=== PATIENT | male | born 1945 | race Caucasian/White ===

== ENCOUNTER 2022-12-26 09:35 | Outpatient (REF) | payer MEDICARE, SELFPAY | END 2022-12-26 09:36 | disposition home or self-care (01) | LOC: HO.LAB 09:35 | PROVIDERS: PCP Internal Medicine; Visit Provider Hospitalist | DX: J45.50 Severe persistent asthma, uncomplicated (principal); J42 Unspecified chronic bronchitis; D72.10 Eosinophilia, unspecified | CPT/HCPCS: 36415; 82785; 86003; 99202 ==

== ENCOUNTER 2023-01-15 07:34 | Outpatient (REF) | payer MEDICARE, SELFPAY ==
--- NOTE | 2023-01-15 17:13 | PFT_ITS ---
Forced vital capacity 117%, FEV1 118%, FEV1/FVC ratio is 72. [id number], 123% and MVV 95%. Post bronchodilator therapy, there is no significant change. Total lung capacity 108% and residual volume 102%. Diffusion capacity 91%. CONCLUSION: Normal pulmonary function test and there is no evidence of any obstructive or restrictive pulmonary disorder. MD JERRELL Morrissey/ARSLAN / [id number]
== END 2023-01-15 07:35 | disposition home or self-care (01) ==
LOC: HO.RESP 07:34
PROVIDERS: PCP Internal Medicine; Visit Provider Hospitalist
DX: J45.50 Severe persistent asthma, uncomplicated (principal)
CPT/HCPCS: 94060; 94727; 94729

== ENCOUNTER → 2023-01-30 09:36 | Outpatient (BNVA) | payer MEDICARE, SELFPAY | PROVIDERS: PCP Internal Medicine; Visit Provider Hospitalist | DX: J45.50 Severe persistent asthma, uncomplicated (principal); J42 Unspecified chronic bronchitis; D72.10 Eosinophilia, unspecified | CPT/HCPCS: Q3014 ==

== ENCOUNTER → 2023-04-05 14:09 | Outpatient (BNVA) | payer MEDICARE, SELFPAY | PROVIDERS: PCP Internal Medicine; Visit Provider Hospitalist | DX: J45.50 Severe persistent asthma, uncomplicated (principal); J42 Unspecified chronic bronchitis; D72.10 Eosinophilia, unspecified; Z79.899 Other long term (current) drug therapy | CPT/HCPCS: 99212 ==

== ENCOUNTER 2023-06-06 09:00 | Outpatient (AMB) | payer MEDICARE, SELFPAY ==
--- NOTE | 2023-06-06 09:17 | A.OFFVIS_ITS ---
Intake Vital Signs 06/06/23 09:18 Height 5 ft 9 in Weight 197 lb BMI 29.1 BP 112/78 Blood Pressure Location Lt brachial Position Standing Pulse 105 H Pulse Source Pulse Oximeter Pulse Oximetry (%) 95 Intake Visit Reasons: COPD follow-up Intake Note: pt is here for follow up and states he is feeling good. Head Trimmer Required: No Allergies No Known Allergies Allergy (Verified 06/06/23 09:22) HPI HPI Comments History of Present Illness Details The patient is a 77-year-old gentleman with lifelong asthma. He had been otherwise doing well until the last about 3 years. He has had more bouts of difficulty breathing. He has been on Symbicort 160 or 4.5 which initially was helpful but now appears to be not enough. He is having to use his rescue inhaler multiple times. Says response very good to prednisone. At times he will take the prednisone every 3 days to try to keep him stable and minimize exacerbations. Although the therapy was working he understands that prednisone does have significant adverse effects especially taking it regularly. The patient was last evaluated at [facility] about 4-6 weeks ago for worsening shortness of breath and chest tightness. There he had a chest x-ray demonstrating hyperinflation of the lungs. His blood work was also evaluated. He did not have any recent blood work done but previous blood work demonstrates significant eosinophilia between 800 to 1100 absolute count which is significantly high. 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 Patient also understands with all the above stations that he has had throughout the years he is having less response to the bronchodilators and now relying more on prednisone to dissolve the eosinophilic issue. Will go ahead and request additional blood work. Will also try to optimize his respiratory therapy. However, in view of his significant eosinophilic asthma and is frequent exacerbations any for prednisone he will be a great candidate for biologic therapy with IL5 inhibitor. 01/30/2023 the patient has a telehealth visit. The patient overall has been doing better on the Trelegy inhaler. Although he is concerned about the cost. He has not tried to pick it up as of yet. He had been on Symbicort before that. Appear to be not very effective for him he ended did undergo blood work is IgE level was elevated 199 and also had some minimal allergies noted on the RAST panel. His respiratory status appears to be better although his nasal congestion is worse. Complains of postnasal drip nasal congestion moderate severity. He has been using the Neti bottle to rinse his nose. He ate knows to use distilled water. Therefore, will go ahead and add allergy medicines to his regimen and also nasal cortical steroids. The patient may have a component of a subacute or chronic sinusitis from the ongoing obstruction so therefore will go ahead and start him on doxycycline for a course of 10-14 days. Also, if the Trelegy inhaler is too expensive will try to find alternative that will be most reasonable for him. The 04/05/2023 the patient is here for pulmonary follow-up visit. He continues to struggle with his breathing. Still has a cough moderate severity. Does respond well to his bronchodilator. Patient has significant allergies. He has tried multiple inhalers the only 1 that really work well was Trelegy but it was too expensive. Symbicort seems to be partially helpful. Although he needs to make sure to use it. He feels like the rescue inhaler is most effective 1. Clear the a combination work better than 1 by itself. In addition to this is wondering about prednisone. Does have a lot of wheezing on examination so therefore is reasonable for him to go on a prednisone course. But I would advise him to stay on chronic prednisone in view of all the adverse effects. The patient does have significant wheezing. He will benefit from also a nebulizer to provide better bronchodilation. 06/06/2023 the patient is here for a pulmonary follow-up visit. Overall the patient is doing very well. He has been using the Symbicort inhaler. He also will start using the singular that he got recently. She does like he is doing a lot better. He did get prescribed prednisone but he has not had to use it often. Possibly just about 8 tablets. He is really trying not to use it at all. Currently his asthma seems to be in good control and is not requiring any additional medication. He did have allergy testing. Seems like he does have a slight elevation the IgE but otherwise minimal. Will plan to have him come back in the springtime and repeat a chest x-ray at that time. Otherwise patient is doing well [facility] Medical History (Updated 12/26/22 @ 21:51 by Castillo Wallace MD) Allergic eosinophilia Asthma Chronic bronchitis Social History (Reviewed 06/06/23 @ 09:24 by Kenia Singleton COUNT INCLUDES THE [facility]) Patient Tobacco Use Status: Never used Tobacco Review of Systems Const Denies fever(s) Eyes Denies change in vision ENT Denies change in voice, Reports nasal congestion, Reports nasal discharge and Reports post nasal drip Card Denies chest pain Resp Denies chest congestion, Reports cough and Denies wheezing GI Reports no additional complaints Musc Reports no additional complaints Skin/Breast Denies rash Neuro Reports no additional complaints Endo Denies flushing Jay/Lymph Denies easy bruising and Denies lymphadenopathy Aller/Immun Denies wheezing Physical Exam Vital Signs: Last Vital Signs Pulse 105 H 06/06/23 09:18 BP 112/78 06/06/23 09:18 Pulse Ox 95 06/06/23 09:18 BMI result Body Mass Index 29.1 Const General: comfortable HEENT Head: Yes normocephalic Eyes General: appearance normal, both eyes and all related structures Neck Neck: Yes supple Chest Chest palpation & inspection: normal inspection of the chest Resp Effort & Inspection: normal respiratory effort Auscultation: no rhonchi, no wheezes and diminished lung sounds Cardio Rate: regular rate Rhythm: regular rhythm Heart sounds: S1 normal heart sound present and S2 normal heart sound present GI Auscultation: normal bowel sounds Skin General skin exam: no rashes or lesions noted Extrem General: Yes no clubbing, cyanosis or edema Assessment & Plan Assessment & Plan (1) Asthma: Code(s): J45.909 - Unspecified asthma, uncomplicated Qualifiers: Asthma complication type: uncomplicated Asthma persistence: persistent Asthma severity: severe Qualified Code(s): J45.50 - Severe persistent asthma, uncomplicated (2) Chronic bronchitis: Code(s): J42 - Unspecified chronic bronchitis (3) 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
[2023-06-06 09:18] VITALS: BP 112/78; PULSE 105; O2SAT 95; BMI 29.1
== END 2023-06-06 10:05 | disposition home or self-care (01) ==
PROVIDERS: PCP Internal Medicine; Visit Provider Hospitalist
DX: J45.50 Severe persistent asthma, uncomplicated (principal); J42 Unspecified chronic bronchitis; D72.10 Eosinophilia, unspecified
CPT/HCPCS: 99214

== ENCOUNTER → 2023-06-06 09:00 | Outpatient (BNVA) | payer MEDICARE, SELFPAY | PROVIDERS: Visit Provider Hospitalist | DX: J45.50 Severe persistent asthma, uncomplicated (principal); J42 Unspecified chronic bronchitis; D72.10 Eosinophilia, unspecified | CPT/HCPCS: 99212 ==

== ENCOUNTER 2023-10-04 13:36 | Outpatient (AMB) | payer MEDICARE, SELFPAY ==
--- NOTE | 2023-10-04 13:46 | MHC.OFFVIS ---
Intake Vital Signs 10/04/23 13:47 Height 5 ft 9 in Weight 195 lb 1.745 oz BMI 28.8 BP 128/84 Blood Pressure Location Rt brachial Position Sitting Pulse 95 Pulse Source Doppler Pulse Oximetry (%) 96 Oxygen Delivery Method Room Air Intake Visit Reasons: productive cough Allergies No Known Allergies Allergy (Verified 10/04/23 13:48) HPI HPI Comments History of Present Illness Details The patient is a 78-year-old gentleman with lifelong asthma. He had been otherwise doing well until the last about 3 years. He has had more bouts of difficulty breathing. He has been on Symbicort 160 or 4.5 which initially was helpful but now appears to be not enough. He is having to use his rescue inhaler multiple times. Says response very good to prednisone. At times he will take the prednisone every 3 days to try to keep him stable and minimize exacerbations. Although the therapy was working he understands that prednisone does have significant adverse effects especially taking it regularly. The patient was last evaluated at [facility] about 4-6 weeks ago for worsening shortness of breath and chest tightness. There he had a chest x-ray demonstrating hyperinflation of the lungs. His blood work was also evaluated. He did not have any recent blood work done but previous blood work demonstrates significant eosinophilia between 800 to 1100 absolute count which is significantly high. 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 Patient also understands with all the above stations that he has had throughout the years he is having less response to the bronchodilators and now relying more on prednisone to dissolve the eosinophilic issue. Will go ahead and request additional blood work. Will also try to optimize his respiratory therapy. However, in view of his significant eosinophilic asthma and is frequent exacerbations any for prednisone he will be a great candidate for biologic therapy with IL5 inhibitor. 01/30/2023 the patient has a telehealth visit. The patient overall has been doing better on the Trelegy inhaler. Although he is concerned about the cost. He has not tried to pick it up as of yet. He had been on Symbicort before that. Appear to be not very effective for him he ended did undergo blood work is IgE level was elevated 199 and also had some minimal allergies noted on the RAST panel. His respiratory status appears to be better although his nasal congestion is worse. Complains of postnasal drip nasal congestion moderate severity. He has been using the Neti bottle to rinse his nose. He ate knows to use distilled water. Therefore, will go ahead and add allergy medicines to his regimen and also nasal cortical steroids. The patient may have a component of a subacute or chronic sinusitis from the ongoing obstruction so therefore will go ahead and start him on doxycycline for a course of 10-14 days. Also, if the Trelegy inhaler is too expensive will try to find alternative that will be most reasonable for him. The 04/05/2023 the patient is here for pulmonary follow-up visit. He continues to struggle with his breathing. Still has a cough moderate severity. Does respond well to his bronchodilator. Patient has significant allergies. He has tried multiple inhalers the only 1 that really work well was Trelegy but it was too expensive. Symbicort seems to be partially helpful. Although he needs to make sure to use it. He feels like the rescue inhaler is most effective 1. Clear the a combination work better than 1 by itself. In addition to this is wondering about prednisone. Does have a lot of wheezing on examination so therefore is reasonable for him to go on a prednisone course. But I would advise him to stay on chronic prednisone in view of all the adverse effects. The patient does have significant wheezing. He will benefit from also a nebulizer to provide better bronchodilation. 06/06/2023 the patient is here for a pulmonary follow-up visit. Overall the patient is doing very well. He has been using the Symbicort inhaler. He also will start using the singular that he got recently. She does like he is doing a lot better. He did get prescribed prednisone but he has not had to use it often. Possibly just about 8 tablets. He is really trying not to use it at all. Currently his asthma seems to be in good control and is not requiring any additional medication. He did have allergy testing. Seems like he does have a slight elevation the IgE but otherwise minimal. Will plan to have him come back in the springtime and repeat a chest x-ray at that time. Otherwise patient is doing well. 10/04/2023 the patient is here for a pulmonary follow-up visit. The patient overall has been doing well. He continues with Symbicort inhaler. The patient had been given a prescription of prednisone back in May. He is had to use it a few times. The patient does only use the minimal amount of prednisone for only a few days. Again we talked about his significant eosinophilia. His absolute eosinophils count is up to 800 the last time they were checked back in July 2023. Explained to him that with eosinophilic asthma it can be easily treated with biologic therapy. Therefore, he will not require as much prednisone that has significant adverse effects. I did give him some information about Mariahra he is going to read up on it and decide. In the meantime the patient is doing better this time. Denies any wheezing or chest tightness. He is staying active in 20 to exercise regularly. Will follow-up in 6 months. If the patient decides to try the biologic therapy prior to that he is to call the office so we can arrange for it. [facility] Medical History (Updated 10/04/23 @ 13:50 by Castillo Wallace MD) Allergic eosinophilia Chronic bronchitis Asthma Social History Patient Tobacco Use Status: Never used Tobacco Review of Systems Const Denies fever(s) Eyes Denies change in vision ENT Denies change in voice, Reports nasal congestion, Reports nasal discharge and Reports post nasal drip Card Denies chest pain Resp Denies chest congestion, Reports cough and Reports wheezing GI Reports no additional complaints Musc Reports no additional complaints Skin/Breast Denies rash Neuro Reports no additional complaints Endo Denies flushing Jay/Lymph Denies easy bruising and Denies lymphadenopathy Aller/Immun Reports wheezing Physical Exam Vital Signs: Last Vital Signs Pulse 95 10/04/23 13:47 BP 128/84 10/04/23 13:47 Pulse Ox 96 10/04/23 13:47 Oxygen Delivery Method Room Air 10/04/23 13:47 BMI result Body Mass Index 28.8 Const General: comfortable HEENT Head: Yes normocephalic Eyes General: appearance normal, both eyes and all related structures Neck Neck: Yes supple Chest Chest palpation & inspection: normal inspection of the chest Resp Effort & Inspection: normal respiratory effort Auscultation: no rhonchi, no wheezes and diminished lung sounds Cardio Rate: regular rate Rhythm: regular rhythm Heart sounds: S1 normal heart sound present and S2 normal heart sound present GI Auscultation: normal bowel sounds Skin General skin exam: no rashes or lesions noted Extrem General: Yes no clubbing, cyanosis or edema Assessment & Plan Assessment & Plan (1) Asthma: Code(s): J45.909 - Unspecified asthma, uncomplicated Qualifiers: Asthma complication type: uncomplicated Asthma persistence: persistent Asthma severity: severe Qualified Code(s): J45.50 - Severe persistent asthma, uncomplicated (2) Chronic bronchitis: Code(s): J42 - Unspecified chronic bronchitis Qualifiers: Chronic bronchitis type: mucopurulent Qualified Code(s): J41.1 - Mucopurulent chronic bronchitis (3) 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 F/U 6-8 months Medications: New prednisone PO daily; Take 6 tabs daily x 3 days, then 5 tabs x 3 days, then 4 tabs x 3 days, then 3 tabs x 3 days, then 2 tabs daily x 3 days, then 1 tab x 3 days to complete. 18 days 63 tabs 0RF Coding Level of Care Code Est Pt Level 4 (67056) Diagnoses Severe persistent asthma without complication J45.50 Asthma complication type: uncomplicated Asthma persistence: persistent Asthma severity: severe Mucopurulent chronic bronchitis J41.1 Chronic bronchitis type: mucopurulent Allergic eosinophilia D72.10 Time Spent (min) 16
[2023-10-04 13:47] VITALS: BP 128/84; PULSE 95; O2SAT 96; BMI 28.8
== END 2023-10-04 14:04 | disposition home or self-care (01) ==
PROVIDERS: PCP Internal Medicine; Visit Provider Hospitalist
DX: J45.50 Severe persistent asthma, uncomplicated (principal); J41.1 Mucopurulent chronic bronchitis; D72.10 Eosinophilia, unspecified
CPT/HCPCS: 99214

== ENCOUNTER → 2023-10-04 13:36 | Outpatient (BNVA) | payer MEDICARE, SELFPAY | PROVIDERS: PCP Internal Medicine; Visit Provider Hospitalist | DX: J45.50 Severe persistent asthma, uncomplicated (principal); J41.1 Mucopurulent chronic bronchitis; D72.10 Eosinophilia, unspecified | CPT/HCPCS: 99212 ==

== ENCOUNTER 2024-04-09 09:05 | Outpatient (AMB) | payer MEDICARE, SELFPAY ==
--- NOTE | 2024-04-09 09:09 | A.OFFVIS_ITS ---
Vital Signs 04/09/24 09:10 Height 5 ft 9 in Weight 194 lb BMI 28.6 BP 134/78 Blood Pressure Location Lt brachial Position Sitting Pulse 89 Pulse Source Pulse Oximeter Pulse Oximetry (%) 97 Oxygen Delivery Method Room Air Intake Visit Reasons: productive cough [employer] Required: No Allergies No Known Allergies Allergy (Verified 04/09/24 09:12) HPI Comments Details: The patient is a 78-year-old gentleman with lifelong asthma. He had been otherwise doing well until the last about 3 years. He has had more bouts of difficulty breathing. He has been on Symbicort 160 or 4.5 which initially was helpful but now appears to be not enough. He is having to use his rescue inhaler multiple times. Says response very good to prednisone. At times he will take the prednisone every 3 days to try to keep him stable and minimize exacerbations. Although the therapy was working he understands that prednisone does have significant adverse effects especially taking it regularly. The patient was last evaluated at [facility] about 4-6 weeks ago for worsening shortness of breath and chest tightness. There he had a chest x-ray demonstrating hyperinflation of the lungs. His blood work was also evaluated. He did not have any recent blood work done but previous blood work demonstrates significant eosinophilia between 800 to 1100 absolute count which is significantly high. 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 Patient also understands with all the above stations that he has had throughout the years he is having less response to the bronchodilators and now relying more on prednisone to dissolve the eosinophilic issue. Will go ahead and request additional blood work. Will also try to optimize his respiratory therapy. However, in view of his significant eosinophilic asthma and is frequent exacerbations any for prednisone he will be a great candidate for biologic therapy with IL5 inhibitor. 10/04/2023 the patient is here for a pulmonary follow-up visit. The patient overall has been doing well. He continues with Symbicort inhaler. The patient had been given a prescription of prednisone back in May. He is had to use it a few times. The patient does only use the minimal amount of prednisone for only a few days. Again we talked about his significant eosinophilia. His absolute eosinophils count is up to 800 the last time they were checked back in July 2023. Explained to him that with eosinophilic asthma it can be easily treated with biologic therapy. Therefore, he will not require as much prednisone that has significant adverse effects. I did give him some information about Fasenra he is going to read up on it and decide. In the meantime the patient is doing better this time. Denies any wheezing or chest tightness. He is staying active in 20 to exercise regularly. Will follow-up in 6 months. If the patient decides to try the biologic therapy prior to that he is to call the office so we can arrange for it. 04/09/2024 the patient is here for a pulmonary follow-up visit. The patient is doing very well. He continues on the Symbicort and also has been using his allergy medicines. He also has a rescue medicine. He has not had to use it frequently. Typically about twice a week. Regards the prednisone he has been doing very well off the prednisone. At times may take does here and there to try to avoid any significant exacerbations. He does have significant eosinophilic asthma. We did talk about other alternatives including biologic therapies that he has not interested at this time. The patient is happy with his current regimen of medications. We did talk about the risks and benefits of prednisone in the adverse effects that can happen with long-term use. The patient is aware and is willing to continue to use the prednisone as needed. He understands though that if his condition worsens and stops responding to the minimal dose prednisone that he takes as needed then we can at that point talk about other potential treatment options. [facility] Medical History (Updated 10/04/23 @ 13:50 by Castillo Wallace MD) Allergic eosinophilia Chronic bronchitis Asthma Social History Patient Tobacco Use Status: Never used Tobacco Review of Systems Const Denies fever(s) Eyes Denies change in vision ENT Denies change in voice, Reports nasal congestion, Reports nasal discharge and Reports post nasal drip Card Denies chest pain Resp Denies chest congestion, Reports cough and Reports wheezing GI Reports no additional complaints Musc Reports no additional complaints Skin/Breast Denies rash Neuro Reports no additional complaints Endo Denies flushing Jay/Lymph Denies easy bruising and Denies lymphadenopathy Aller/Immun Reports wheezing Physical Exam Vital Signs: Last Vital Signs Pulse 89 04/09/24 09:10 BP 134/78 04/09/24 09:10 Pulse Ox 97 04/09/24 09:10 Oxygen Delivery Method Room Air 04/09/24 09:10 BMI result Body Mass Index 28.6 Const General: comfortable HEENT Head: Yes normocephalic Eyes General: appearance normal, both eyes and all related structures Neck Neck: Yes supple Chest Chest palpation & inspection: normal inspection of the chest Resp Effort & Inspection: normal respiratory effort Auscultation: no rhonchi, no wheezes and diminished lung sounds Cardio Rate: regular rate Rhythm: regular rhythm Heart sounds: S1 normal heart sound present and S2 normal heart sound present GI Auscultation: normal bowel sounds Skin General skin exam: no rashes or lesions noted Extrem General: Yes no clubbing, cyanosis or edema Assessment & Plan Assessment & Plan (1) Asthma: Code(s): J45.909 - Unspecified asthma, uncomplicated Category: Medical Qualifiers: Asthma complication type: uncomplicated Asthma persistence: persistent Asthma severity: severe Qualified Code(s): J45.50 - Severe persistent asthma, uncomplicated (2) Chronic bronchitis: Code(s): J42 - Unspecified chronic bronchitis Category: Medical Qualifiers: Chronic bronchitis type: mucopurulent Qualified Code(s): J41.1 - Mucopurulent chronic bronchitis (3) Allergic eosinophilia: Code(s): D72.10 - Eosinophilia, unspecified Category: Medical Plan conrinue Symbicort JOSE as needed nebulizer to use BID continue Singulair continue fluticasone nasal spray Start Prednisone if no better will be a great candidate for IL5 inhibitor to treat his eosinophilic asthma, Provided information re: Fredis. F/U 8 months Medications: Refilled montelukast (Singulair) 10 mg PO BEDTIME 30 tabs 11RF 30 days J45.909 - Unspecified asthma, uncomplicated budesonide-formoterol 160-4.5 mcg/actuation (Symbicort) 2 puffs inhalation Q12H 10.2 grams 11RF albuterol sulfate 90 mcg/actuation 2 puffs inhalation Q4-6H PRN 8.5 grams 11RF shortness of breath or wheezing Coding Level of Care Code Est Pt Level 4 (18212) Diagnoses Severe persistent asthma without complication J45.50 Asthma complication type: uncomplicated Asthma persistence: persistent Asthma severity: severe Mucopurulent chronic bronchitis J41.1 Chronic bronchitis type: mucopurulent Allergic eosinophilia D72.10 Time Spent (min) 16
[2024-04-09 09:10] VITALS: BP 134/78; PULSE 89; O2SAT 97; BMI 28.6
== END 2024-04-09 09:25 | disposition home or self-care (01) ==
PROVIDERS: PCP Internal Medicine; Visit Provider Hospitalist
DX: J45.50 Severe persistent asthma, uncomplicated (principal); J41.1 Mucopurulent chronic bronchitis; D72.10 Eosinophilia, unspecified
CPT/HCPCS: 99214

== ENCOUNTER → 2024-04-09 | Outpatient (BNVA) | payer MEDICARE, SELFPAY | PROVIDERS: PCP Internal Medicine; Visit Provider Hospitalist | DX: J82.83 Eosinophilic asthma (principal); J45.50 Severe persistent asthma, uncomplicated; J42 Unspecified chronic bronchitis | CPT/HCPCS: 99212 ==

== ENCOUNTER 2025-01-15 09:20 | Outpatient (AMB) | payer MEDICARE, SELFPAY ==
[2025-01-15 09:25] VITALS: BP 110/78; PULSE 84; O2SAT 97; BMI 29.0
--- NOTE | 2025-01-15 09:25 | A.OFFVIS_ITS ---
Vital Signs 01/15/25 09:25 Height 5 ft 9 in Weight 196 lb 3.382 oz BMI 29.0 BP 110/78 Blood Pressure Location Rt brachial Position Sitting Pulse 84 Pulse Source Pulse Oximeter Pulse Oximetry (%) 97 Oxygen Delivery Method Room Air Intake Visit Reasons: cough Allergies No Known Allergies Allergy (Verified 01/15/25 09:28) HPI Comments Details: The patient is a 79-year-old gentleman with lifelong asthma. He had been otherwise doing well until the last about 3 years. He has had more bouts of difficulty breathing. He has been on Symbicort 160 or 4.5 which initially was helpful but now appears to be not enough. He is having to use his rescue inhaler multiple times. Says response very good to prednisone. At times he will take the prednisone every 3 days to try to keep him stable and minimize exacerbations. Although the therapy was working he understands that prednisone does have significant adverse effects especially taking it regularly. The patient was last evaluated at [facility] about 4-6 weeks ago for worsening shortness of breath and chest tightness. There he had a chest x-ray demonstrating hyperinflation of the lungs. His blood work was also evaluated. He did not have any recent blood work done but previous blood work demonstrates significant eosinophilia between 800 to 1100 absolute count which is significantly high. 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 Patient also understands with all the above stations that he has had throughout the years he is having less response to the bronchodilators and now relying more on prednisone to dissolve the eosinophilic issue. Will go ahead and request additional blood work. Will also try to optimize his respiratory therapy. However, in view of his significant eosinophilic asthma and is frequent exacerbations any for prednisone he will be a great candidate for biologic therapy with IL5 inhibitor. 10/04/2023 the patient is here for a pulmonary follow-up visit. The patient overall has been doing well. He continues with Symbicort inhaler. The patient had been given a prescription of prednisone back in May. He is had to use it a few times. The patient does only use the minimal amount of prednisone for only a few days. Again we talked about his significant eosinophilia. His absolute eosinophils count is up to 800 the last time they were checked back in July 2023. Explained to him that with eosinophilic asthma it can be easily treated with biologic therapy. Therefore, he will not require as much prednisone that has significant adverse effects. I did give him some information about Mariahra he is going to read up on it and decide. In the meantime the patient is doing better this time. Denies any wheezing or chest tightness. He is staying active in 20 to exercise regularly. Will follow-up in 6 months. If the patient decides to try the biologic therapy prior to that he is to call the office so we can arrange for it. 04/09/2024 the patient is here for a pulmonary follow-up visit. The patient is doing very well. He continues on the Symbicort and also has been using his allergy medicines. He also has a rescue medicine. He has not had to use it frequently. Typically about twice a week. Regards the prednisone he has been doing very well off the prednisone. At times may take does here and there to try to avoid any significant exacerbations. He does have significant eosinophilic asthma. We did talk about other alternatives including biologic therapies that he has not interested at this time. The patient is happy with his current regimen of medications. We did talk about the risks and benefits of prednisone in the adverse effects that can happen with long-term use. The patient is aware and is willing to continue to use the prednisone as needed. He understands though that if his condition worsens and stops responding to the minimal dose prednisone that he takes as needed then we can at that point talk about other potential treatment options. 01/15/2025 the patient is here for a pulmonary follow-up visit. Overall he is doing well from a respiratory status. He continues to complain about a postnasal drip and a constant clearing of the throat and some coughing. Seems to be pretty persistent for him. He does have underlying allergies and significant eosinophilia. He is currently not treating his nose. He is not taking any other allergy medicine except for the Singulair. From the respiratory status is doing well denies any wheezing or chest tightness. He has been able to stay active and doing all the activities of daily living without any limitations. We did review imaging studies. He did have a CT scan of the chest in 2021 which was personally by me demonstrating some evidence of bronchitis but no airspace disease or nodular densities, and also had a CT scan of the abdomen done more recently 10/08/2024 did personally look at the lung windows there appeared to be okay. Will plan to have him come back next year will do an x-ray done. If he has any issues her symptoms prior to that he will call get the x-ray sooner. And for the meantime will start him on Zyrtec and also Tessalon Perles as needed for that constant clearing. [facility] Medical History (Updated 10/04/23 @ 13:50 by Castillo Wallace MD) Allergic eosinophilia Chronic bronchitis Asthma Social History Patient Tobacco Use Status: Never used Tobacco Review of Systems Const Denies fever(s) Eyes Denies change in vision ENT Denies change in voice, Reports nasal congestion, Reports nasal discharge and Reports post nasal drip Card Denies chest pain Resp Denies chest congestion, Reports cough and Reports wheezing GI Reports no additional complaints Musc Reports no additional complaints Skin/Breast Denies rash Neuro Reports no additional complaints Endo Denies flushing Jay/Lymph Denies easy bruising and Denies lymphadenopathy Aller/Immun Reports wheezing Physical Exam Vital Signs: Last Vital Signs Pulse 84 01/15/25 09:25 BP 110/78 01/15/25 09:25 Pulse Ox 97 01/15/25 09:25 Oxygen Delivery Method Room Air 01/15/25 09:25 BMI result Body Mass Index 29.0 Const General: comfortable HEENT Head: Yes normocephalic Eyes General: appearance normal, both eyes and all related structures Neck Neck: Yes supple Chest Chest palpation & inspection: normal inspection of the chest Resp Effort & Inspection: normal respiratory effort Auscultation: clear to auscultation bilaterally, no rhonchi and no wheezes Cardio Rate: regular rate Rhythm: regular rhythm Heart sounds: S1 normal heart sound present and S2 normal heart sound present GI Auscultation: normal bowel sounds Skin General skin exam: no rashes or lesions noted Extrem General: Yes no clubbing, cyanosis or edema Assessment & Plan Assessment & Plan (1) Asthma: Code(s): J45.909 - Unspecified asthma, uncomplicated Category: Medical Qualifiers: Asthma complication type: uncomplicated Asthma persistence: persistent Asthma severity: severe Qualified Code(s): J45.50 - Severe persistent asthma, uncomplicated (2) Chronic bronchitis: Code(s): J42 - Unspecified chronic bronchitis Category: Medical Qualifiers: Chronic bronchitis type: mucopurulent Qualified Code(s): J41.1 - Mucopurulent chronic bronchitis (3) Allergic eosinophilia: Code(s): D72.10 - Eosinophilia, unspecified Category: Medical Plan conrinue Symbicort JOSE as needed nebulizer to use BID continue Singulair continue fluticasone nasal spray zyrtec tessalon pearls as needed CXR F/U 8-12 months Orders: Orders XR chest 2V Today J45.50 - Severe persistent asthma, uncomplicated Medications: New benzonatate 200 mg PO BID 30 days PRN 60 caps 6RF cough prednisone PO daily; Take 6 tabs daily x 3 days, then 5 tabs x 3 days, then 4 tabs x 3 days, then 3 tabs x 3 days, then 2 tabs daily x 3 days, then 1 tab x 3 days to complete. 18 days 63 tabs 0RF J45.50 - Severe persistent asthma, uncomplicated cetirizine (Zyrtec) 10 mg PO DAILY 30 days 30 tabs 11RF Coding Level of Care Code Est Pt Level 4 (84303) Diagnoses Severe persistent asthma without complication J45.50 Asthma complication type: uncomplicated Asthma persistence: persistent Asthma severity: severe Mucopurulent chronic bronchitis J41.1 Chronic bronchitis type: mucopurulent Allergic eosinophilia D72.10 Time Spent (min) 16
--- OUTSIDE RECORDS SUMMARY | 2025-01-15 10:10 | XMS_ITS | Patient Health Record ---
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 Name Role Phone Hiren Hathaway Primary Care Provider Lluvia PINEDA MSN,[employer]IZE FIG[employer]TER-C, HENNA Unavailable Reason For Referral No Information Medications Medication SIG (Take, Route, Frequency, Duration) Notes Start Date End Date Status Esomeprazole Magnesium 40 MG 1 capsule O rally Once a day for 30 day(s) Not-Taking Symbicort 160 160-4.5 MCG/ACT 2 puffs In halation Twice a day for 30 days Active Advair Diskus 250-50 MCG/DOSE Please spe cify directions, refills and quantity Active Prednisone 6 days 10 mg 3 tablets for 2 days, 2 tablets for 2 days, 1 tablet for 1 day Orally 01/28/2018 Not-Taking predniSONE 5 MG 1 tablet Orally Once a day for 30 day(s) Not-Taking Albuterol Sulfate HFA 108 (9 0 Base) MCG/ACT 2 puffs as needed Inhalation every 6 hrs for 30 days Active EpiPen 2-Segundo 0.3 MG/0.3ML Injection Not-Taking Flonase Sensimist 27.5 MCG/SPRAY 2 spray in each nostril Nasally twice a day for 30 day(s) Active Terazosin HCl 2 MG 1 capsule Orally Once a day for 30 day(s) Not-Taking hydroCHLOROthiazide 25 MG 1 tablet in e morning Orally Once a day prn Active Aspirin Adult Low Dose 81 MG 1 tablet Or ally Once a day for 30 day(s) prn Active Atorvastatin Calcium 40 MG 1 tablet Oral ly Once a day for 30 day(s) Active Losartan Potassium 100 MG 1 tablet Orall y Once a day Active Vitamin D3 2000 UNIT 1 capsule Orally Once a day for 30 day(s) Active Social History Tobacco Use: Social History Observation Description Date Details (start date - stop date) Never Smoker NA - NA Tobacco Use/Smoking Question Answer Notes Are you a nonsmoker Alcohol Screen (Audit-C) Question Answer Notes Did you have a drink contain ing alcohol in the past year? Yes How often did you have a dri nk containing alcohol in the past year? 2 to 3 times a week (3 points) How many drinks did you have on a typical day when you were drinking in the past year? 1 or 2 drinks (0 point) How often did you have 6 or more drinks on one occasion in the past year? Never (0 point) Points 3 Interpretation Negative Tobacco use other than smoking: Question Answer Notes Are you an other tobacco user? No Section Notes: No excessive dust or mold in household. 1 dog. No smokers. reviewed 01/22/2018 FF No excessive dust or mold in household. 1 dog. No smokers. reviewed 01/22/2018 FF No excessive dust or mold in household. 1 dog. No smokers. Reviewed 09/25/2018 JF No excessive dust or mold in household. 1 dog. No smokers. Reviewed 09/25/2018 JF Reviewed 10/17/2018 JF No excessive dust or mold in household. 1 dog. No smokers. REVIEWED DN 12/19/2018 No excessive dust or mold in household. 1 dog. No smokers. Reviewed Dn 01/14/2019 No excessive dust or mold in household. 1 dog. No smokers. Reviewed Dn 01/14/2019 reviewed 03/06/2019 tla No excessive dust or mold in household. 1 dog. No smokers. Reviewed Dn 01/14/2019 reviewed 03/06/2019 tla Problems Problem Type SNOMED Code ICD Code Onset Dates Problem Status W/U Status Risk Notes Problem 35885854 Nasal polyp (J33.9) Active confirmed Problem 503471771 Moderate asthma without complication, unspecified whether persistent (J45.909) Active confirmed Plan Of Treatment Pending Test Test Name Order Date SPIROMETRY 01/22/2018 SPIROMETRY 12/19/2018 SPIROMETRY 12/18/2019 Niox 12/18/2019 Niox 01/22/2018 Niox 10/17/2018 Rhinoscopy 10/17/2018 Rhinoscopy 12/19/2018 Rhinoscopy 01/22/2018 Rhinoscopy 12/18/2019 Insurance Providers Payer Name Payer Address Payer Phone Subscriber Number Group Number Insured Name Patient Relationship to Insured Coverage Start Date Coverage End Date [employer] [place] [employer] [address] [place] [address] [id number] DONALD SPARROW Self - patient is the insured 0 [facility] [address] [place] [address] [phone] [id number] DONALD SPARROW Self - patient is the insured 0 Medical (General) History Medical History History ICD Code episodic asthma polyps hypertension hyperlipidemia gastroesophageal reflux disease (GERD) Surgical History Surgery Date(Month/Year) rotator cuff 11/2007
== END 2025-01-15 09:54 | disposition home or self-care (01) ==
PROVIDERS: PCP Internal Medicine; Visit Provider Hospitalist
DX: J45.50 Severe persistent asthma, uncomplicated (principal); J41.1 Mucopurulent chronic bronchitis; D72.10 Eosinophilia, unspecified
CPT/HCPCS: 99214

== ENCOUNTER → 2025-01-15 09:20 | Outpatient (BNVA) | payer MEDICARE, SELFPAY | PROVIDERS: PCP Internal Medicine; Visit Provider Hospitalist | DX: J45.50 Severe persistent asthma, uncomplicated (principal); J41.1 Mucopurulent chronic bronchitis; D72.10 Eosinophilia, unspecified | CPT/HCPCS: 99212 ==